=== PATIENT | female | born 1980 | race Hispanic/Latino ===

== ENCOUNTER 2025-03-03 10:58 | Day surgery (SDC) | payer OTHER ==
[2025-02-25 13:45] VITALS: BP 123/68
[~2025-03-03] VITALS: Ht 154.9 cm; Wt 82.7 kg
[~2025-03-03 10:58] MED LIST: CLARITIN10 MG PO; ESTROVEN 155 M155 MG PO; IBLOOD GLUCOSE TEST STRIP 1 EA TEST VI PRN; LACTATED RINGER'S 1,000 ML IV SCH; LIDOCAINE HCL 1% 5 ML SDV INJ ONE; TRANEXAMIC ACI650 MG PO
[2025-03-03 12:28] VITALS: BP 132/68
[2025-03-03] MEDS ORDERED: LIDOCAINE HCL 2% 5 ML SDV ONE (14:24)
--- NOTE | 2025-03-03 15:03 | NUR ---
03/03/25 Meek3 Brandee Gonzales 1453- PT PRESENTS TO PACU, LEFT LATERAL POSITION, NON REACTIVE TO STIMULUS. BREATHING EVEN AND NON LABORED ON 3L O2 PER NC. LR INFUSING TO RFA IV. ABD SOFT, NON DISTENDED. ALL MONITORS IN PLACE. 1458- PT REACTIVE TO TACTILE STIMULUS, REORIENTED TO TIME AND PLACE, PT FALLS RIGHT BACK TO SLEEP. CONTINUE TO MONITOR. 1503- PT MOVED TO ROOM AIR AT THIS TIME.
[2025-03-03 15:48] VITALS: BP 128/70
--- NOTE | 2025-03-04 07:54 | OR ---
[facility] [address] [facility] [place], [place] [address] Signed DATE OF OPERATION: 03/03/2025 SURGEON: Anderson Fowler DO PREOPERATIVE DIAGNOSIS: Colon cancer screening POSTOPERATIVE DIAGNOSES: Colon cancer screening with sigmoid diverticulosis. PROCEDURE PERFORMED: Colonoscopy. ANESTHESIA: IV sedation. ESTIMATED BLOOD LOSS: None. DRAINS: None. COMPLICATIONS: None. DESCRIPTION OF PROCEDURE: The patient was brought to the GI lab, placed in supine position. After induction of IV sedation, the patient was then placed in left lateral position and padded to the satisfaction of anesthesia. The Olympus video colonoscope was then introduced into the rectum and while under direct visualization and insufflation of the colon, the scope was then advanced through the rectosigmoid, sigmoid colon, descending colon, transverse colon, ascending colon into the cecum. The colon was insufflated and exploration of mucosal surfaces carried out. No intrinsic or extrinsic masses were noted in the ascending colon and cecum. The scope was then withdrawn, past hepatic flexure in the transverse colon. No intrinsic or extrinsic masses. No lesions or ulcerations were noted. The scope was then brought back into the descending colon. No intrinsic or extrinsic masses, lesions, or ulcerations appreciated. The scope was brought back into the sigmoid colon. Some scattered sigmoid diverticulosis was noted. No evidence of diverticulitis or bleeding was appreciated. Otherwise, no intrinsic or extrinsic masses were appreciated. Scope was brought back into the rectosigmoid and no intrinsic or Electronically Signed By: ANDERSON FOWLER DO 03/04/25 0754 PATIENT NAME: BLAKE RODRIGUEZ OPERATIVE REPORT DATE OF : 78 REPORT #: [id number] PHYSICIAN: ANDERSON FOWLER DO PCP: BLANCA LE NP REPORT IS CONFIDENTIAL AND NOT TO BE RELEASED WITHOUT AUTHORIZATION [address] [place], [place] [address] Signed extrinsic masses noted except for scattered diverticula. No masses appreciated. Scope was withdrawn. The patient tolerated the procedure well and to recovery room in satisfactory condition. Anderson Fowler DO RS/MODL /[id number] Copies: ~ Electronically Signed By: ANDERSON FOWLER DO 03/04/25 0754 PATIENT NAME: BLAKE RODRIGUEZ OPERATIVE REPORT DATE OF : 78 REPORT #: [id number] PHYSICIAN: ANDERSON FOWLER DO PCP: BLANCA LE NP REPORT IS CONFIDENTIAL AND NOT TO BE RELEASED WITHOUT AUTHORIZATION
== END 2025-03-03 15:38 | disposition home or self-care (01) ==
LOC: DS 10:58
PROVIDERS: ATTEND Surgery
PROC: 0DJD8ZZ Inspection of Lower Intestinal Tract, Via Natural or Artificial Opening Endoscopic (ICD-10-PCS; principal; 2025-03-03 12:05)
DX: Z12.11 Encounter for screening for malignant neoplasm of colon (principal); K57.30 Diverticulosis of large intestine without perforation or abscess without bleeding; E66.9 Obesity, unspecified; Z68.35 Body mass index [BMI] 35.0-35.9, adult; Z88.6 Allergy status to analgesic agent
CPT/HCPCS: 00812; J2003; J2704; J7121